=== PATIENT | female | born 1980 ===

== ENCOUNTER 2021-11-25 12:41 | Emergency (ER) | payer OTHER ==
[~2021-11-25] VITALS: Ht 157.5 cm; Wt 111.1 kg
--- NOTE | 2021-11-25 15:35 | EKG ---
[facility] [address] [place], [place] [address] Signed Sinus tachycardia Incomplete right bundle branch block Inferior infarct , age undetermined Abnormal ECG No previous ECGs available Confirmed by MILLER KING MD ([id number]) on 11/25/2021 3:35:29 PM Electronically Signed By: MILLER KING MD 11/25/21 1535 PATIENT NAME: OLIVIA MELLO Electrocardiogram DATE OF : 78 PHYSICIAN: MILLER KING MD REPORT #: [id number] REPORT IS CONFIDENTIAL AND NOT TO BE RELEASED WITHOUT AUTHORIZATION
== END 2021-11-25 17:28 | disposition home or self-care (01) ==
LOC: ED 12:41 → EDBD 12:42 → ED 12:42
DX: F15.10 Other stimulant abuse, uncomplicated (principal); R07.9 Chest pain, unspecified; Z88.0 Allergy status to penicillin
CPT/HCPCS: 36415; 71045; 80053; 83735; 84484; 85025; 93005; 93010; 99285-25; J7030